=== PATIENT | male | born 1975 | race Caucasian/White ===

== ENCOUNTER → 2016-09-03 19:57 | Outpatient (CLI) | payer MEDICAID ==
[2015-12-22 06:04] VITALS: BMI 38.6
[~2016-09-03 19:57] MED LIST: COREG12.5 MG PO; HYDROCODONE-APA1 TAB PO; LEXAPRO20 MG PO; PRILOSEC10 M1 PO
== END | disposition home or self-care (01) ==
LOC: D.SLEEP 08-16 20:00
DX: G47.30 Sleep apnea, unspecified (principal)

== ENCOUNTER 2017-09-05 17:42 | Emergency (ER) | payer MEDICAID ==
[2015-12-22 06:04] VITALS: BMI 38.6
== END 2017-09-05 19:08 | disposition home or self-care (01) ==
LOC: D.ER 17:42
DX: J20.9 Acute bronchitis, unspecified (principal); I10 Essential (primary) hypertension; E11.9 Type 2 diabetes mellitus without complications